=== PATIENT | male | born 1970 | race Caucasian/White ===

== ENCOUNTER 2016-11-01 12:26 | Emergency (ER) | payer MEDICAID, OTHER ==
[2016-11-01 13:21] VITALS: BP 125/78
--- NOTE | 2016-11-01 13:40 | UC ---
Back Pain HPI - HPI Summary HPI Summary: Acute low back pain starting 10 days ago, feeling frequent spasms and numbness down backs of legs. Has noted urinary incontinence when standing for the last 3 days. Might be constipated, unsure when his last BM was. - History of Current Complaint Stated Complaint: LOWER BACK PAIN Time Seen by Provider: 11/01/16 13:11 Hx Obtained From: Patient Onset/Duration: Gradual Onset, Lasting Days Timing: Constant Severity Initially: Severe Severity Currently: Severe Character: Aching, Spasmodic Aggravating: Movement, Walking Associated Signs And Symptoms: Positive: Weakness, Numbness, Bladder Incontinence. Negative: Redness, Bruising, Fever, Tingling - Risk Factors Cauda Equina Risk Factors: Perineal Anesthesia, Bladder Dysfunction - Allergies/Home Medications Allergies/Adverse Reactions: Allergies Allergy/AdvReac Type Severity Reaction Status Date / Time No Known Allergies Allergy Verified 01/31/13 19:07 PMH/Surg Hx/FS Hx/Imm Hx Endocrine History Of: Denies: Diabetes, Thyroid Disease Cardiovascular History Of: Denies: Cardiac Disorders, Hypertension Respiratory History Of: Denies: COPD, Asthma GI/ History Of: Denies: Ulcer - Surgical History Surgical History: Yes Surgery Procedure, Year, and Place: 17 yrs old had femur shattered and surgery - Family History Known Family History: Positive: Hypertension - Social History Lives: Alone Alcohol Use: None Substance Use Type: Marijuana Substance Use Comment - Amount & Last Used: 2x week, today Smoking Status (MU): Former Smoker Type: Cigarettes Length of Time of Smoking/Using Tobacco: 15 When Did the Patient Quit Smoking/Using Tobacco: 2004 - Immunization History Most Recent Influenza Vaccination: denies Most Recent Pneumonia Vaccination: denies Review of Systems Constitutional: Negative Skin: Negative Eyes: Negative ENT: Negative Respiratory: Negative Cardiovascular: Negative Gastrointestinal: Negative Genitourinary: Other - incontinence Motor: Negative Neurovascular: Negative Musculoskeletal: Arthralgia, Myalgia Neurological: Weakness, Paresthesia Psychological: Negative All Other Systems Reviewed And Are Negative: Yes Physical Exam Triage Information Reviewed: Yes Appearance: Well-Nourished, Pain Distress - with movement Vital Signs: Initial Vital Signs Temp 98.1 F 11/01/16 13:12 Pulse 98 11/01/16 13:12 Resp 20 11/01/16 13:12 BP 125/78 11/01/16 13:12 Pulse Ox 98 11/01/16 13:12 Vital Signs Reviewed: Yes Eye Exam: Normal Eyes: Positive: Conjunctiva Clear ENT Exam: Normal ENT: Positive: Normal ENT inspection, Hearing grossly normal, Pharynx normal, TMs normal Dental Exam: Normal Neck exam: Normal Neck: Positive: Supple, Nontender, No Lymphadenopathy Respiratory Exam: Normal Respiratory: Positive: Chest non-tender, Lungs clear, Normal breath sounds, No respiratory distress, No accessory muscle use Cardiovascular Exam: Normal Cardiovascular: Positive: RRR, No Murmur Abdomen Description: Negative: CVA Tenderness (R), CVA Tenderness (L) Musculoskeletal: Positive: ROM Intact, No Edema, Strength Limited @ - leg extension at knees Neurological Exam: Other - gd rectal tone, DTRs 2+ knees, ankles, full sharp sensation in saddle area, diminished sensation in posterior thighs Psychological Exam: Normal Psychological: Positive: Normal Response To Family Skin Exam: Normal Back Pain Course/Dx - Course Course Of Treatment: Discussed ambulance transport to ED with pt, he does not consent because he has his dog in his vehicle and doesn't know anyone in the area. States he will go to the hospital once he takes care of his dog. - Differential Dx/Diagnosis Provider Diagnoses: low back pain. possible cauda equina syndrome - Physician Notifications Discussed Patient Care With: Destinee Melchor Time Discussed With Above Provider: 14:40 Instructed by Provider To: MD Will See In ED Discharge - Discharge Plan Condition: Fair Disposition: TRANS HIGHER LVL OF CARE FAC Prescriptions: oxyCODONE/Acetamin 5/325 MG* [Percocet 5/325 TAB*] 1 tab PO Q4H PRN #20 tab MDD 6 PRN Reason: Pain Patient Education Materials: Back Pain (ED) Referrals: No Primary Care Phys,NOPCP [Primary Care Provider] - Ondina Shrestha MD [Medical Doctor] - 1 Day Additional Instructions: Please report to the ED after you take care of your dog but for follow up, you can see orthopedics.
--- NOTE | 2016-11-01 14:54 | UC ---
I, Jayy Henderson, scribed for Daniel Wells MD on 11/01/16 at 1406 . Progress - Progress Note Progress Note: Patient is a 46 y/o male who presents to the with incontinence and pain since one week ago. The incontinence has been for three days in the am when he first gets up and he has severe pain. he says he has the sensation to urinate but cannot hold it due to pain. He denies numbness in scrotum and anus, but reports that if he has been too active or standing for extended periods of time , his posterior thighs "go to sleep. He denies any previous back surgery. Appears stiff. He states he has been in this kind of pain for a week. Incontinency for 3 days. He has the sensation to urinate, but unable to control his urine due to pain. Unable to make it to the bathroom. PE: Obvious discomfort. Pin prick intact of the anus and rectal tone intact. neuro exam deferred to [employer]. But reported to be normal in sensation and strength zoila. A&P: He does not describe overflow incontinence. He has intact rectal tone and pin prick around saddle area. Incontinency for 3 days in the morning simply because he stands and feels sharp pain and cannot make it to the bathroom. We recommended a transfer to the hospital on 3 separate occasions and he adamantly refused. We described the possibility of cord compression and in the best case scenario improved pain control in the ER. He states that he will have to go home first, make arrangements for his dog that is currently in his car, and will then report the ER. In the meantime, we will make a referral to the orthopedics and send pain medication to his pharmacy. He also refused Toradol. And again because he was so adamant about driving home we were unable to give him Morphine. The documentation as recorded by the [email or web address] [place] accurately reflects the service I personally performed and the decisions made by me, Daniel Wells MD.
== END 2016-11-01 14:33 | disposition short-term general hospital (02) ==
LOC: UCEAST 12:26
DX: M54.5 Low back pain (principal); R32 Unspecified urinary incontinence; R53.1 Weakness; R20.2 Paresthesia of skin; F12.90 Cannabis use, unspecified, uncomplicated; Z87.891 Personal history of nicotine dependence
CPT/HCPCS: 99202; G0463

== ENCOUNTER 2016-11-05 15:45 | Emergency (ER) | payer SELFPAY ==
[2016-11-05] MEDS ORDERED: Cyclobenzaprine TAB* 10 MG PO ONE (16:42)
--- NOTE | 2016-11-05 17:20 | ED ---
Back Pain - HPI Summary HPI Summary: 46M presents with back pain for two weeks. He denies any injury at the time. He says that he has had urinary retention. He states that is was due to the pain he was unable to get to the bathroom and when urinate on himself. He denies any loss of stool. He states that he has numbness of his pelvis. He was seen in urgent care a week ago and was advised to go to ED to r/o cauda equina but he refused. States has been taking percocet without relief. He describes it as intense muscle spasms when his pain is at the worst. He states the pain is in the middle of his back. - History of Current Complaint Chief Complaint: EDBackInjuryHoney Stated Complaint: BACK PAIN Time Seen by Provider: 11/05/16 17:00 Pain Intensity: 9 - Allergies/Home Medications Allergies/Adverse Reactions: Allergies Allergy/AdvReac Type Severity Reaction Status Date / Time No Known Allergies Allergy Verified 01/31/13 19:07 PMH/Surg Hx/FS Hx/Imm Hx Endocrine/Hematology History: Denies: Hx Diabetes, Hx Thyroid Disease Cardiovascular History: Denies: Hx Hypertension Respiratory History: Denies: Hx Asthma, Hx Chronic Obstructive Pulmonary Disease (COPD) GI History: Denies: Hx Ulcer - Surgical History Surgery Procedure, Year, and Place: 17 yrs old had femur shattered and surgery Infectious Disease History: No Infectious Disease History: Denies: Hx Clostridium Difficile, Hx Hepatitis, Hx Human Immunodeficiency Virus (HIV), Hx of Known/Suspected MRSA, Hx Shingles, Hx Tuberculosis, Hx Known/ Suspected VRE, Hx Known/Suspected VRSA, History Other Infectious Disease, Traveled Outside the [place] in Last 30 Days - Family History Known Family History: Positive: Hypertension - Social History Alcohol Use: None Substance Use Type: Reports: Marijuana Substance Use Comment - Amount & Last Used: 2x week, today Smoking Status (MU): Former Smoker Type: Cigarettes Length of Time of Smoking/Using Tobacco: 15 Review of Systems Negative: Fever Negative: Chest Pain Negative: Shortness Of Breath Positive: Myalgia - back pain All Other Systems Reviewed And Are Negative: Yes Physical Exam Triage Information Reviewed: Yes Vital Signs On Initial Exam: Initial Vitals Temp Pulse Resp BP Pulse Ox 97.2 F 85 16 150/96 96 11/05/16 15:58 11/05/16 15:58 11/05/16 15:58 11/05/16 15:58 11/05/16 15:58 Vital Signs Reviewed: Yes Appearance: Positive: Well-Appearing Skin: Positive: Warm, Dry Head/Face: Positive: Normal Head/Face Inspection Eyes: Positive: Normal, Conjunctiva Clear Respiratory/Lung Sounds: Positive: Clear to Auscultation, Breath Sounds Present Cardiovascular: Positive: Normal, RRR Musculoskeletal: Positive: Limited @ - back due to pain, Other - pos SLR, tenderness midline back Neurological: Positive: Reflexes Intact - patella, ankle Diagnostics - Vital Signs Vital Signs Temp Pulse Resp BP Pulse Ox 11/05/16 15:58 97.2 F 85 16 150/96 96 - Laboratory Lab Statement: Any lab studies that have been ordered have been reviewed, and results considered in the medical decision making process. - Additional Comments Diagnostic Additional Comments: MRI spine IMPRESSION: MILD TO MODERATE DEGENERATIVE DISC DISEASE AND FACET OSTEOARTHRITIS DESCRIBED. Back Pain Course/Dx - Course Course Of Treatment: 46M presents with lower back pain for a two week. no injury. was seen at urgent care a week ago and have signs of cauda equina in that was having urinary retention and numbness of pelvis so was advised to go to ED but patient declined. patient has been taking percocet without relief. Patient says that the pain was causing the retention as sets an alarm now to wake up early to take pain medication and now he is no longer leaking urine. He still though admits to some numbness in his pelvis. he describes the pain as spasms that cause intense pain. talked with dr moreno who advised to do MRI. patient is driving home so unable to give much medication. MRI shows degenerative changes and no cauda equina. discussed results with patient. will prescribe muscle relaxers and prednisone. advised that best to use ibuprofen for pain but patient says that needs something more. discussed risk and benefits and told patient that if uses medication needs to move more as is spending most time in bed, discussed may need PT in the future. gave contact info for neurosurgery but explained that MRI does not show anything surgical. patient understands and agrees with plan - Diagnoses Differential Diagnosis/HQI/PQRI: Positive: Cauda Equina Syndrome, Herniated Disc , Strain, Sprain Provider Diagnoses: Back pain Discharge - Discharge Plan Condition: Good Disposition: HOME Prescriptions: HYDROcodone/ACETAMIN 5-325 MG* [[place] 5-325 TAB*] 1 tab PO Q6H PRN #12 tab MDD 4 PRN Reason: Pain Methocarbamol TAB* [Robaxin TAB*] 750 mg PO TID PRN #9 tab PRN Reason: Pain Methylprednisolone [Medrol Dosepak 4 MG*] 4 mg PO .SEE AMY INSTRUCTION #1 packet Patient Education Materials: Back Pain (ED) Referrals: [facility] [place] [facility]FERR[facility] [Outside] Benoit Sanchez MD [Medical Doctor] - Additional Instructions: Follow directions on package for Medrol pack Take muscle relaxers three times a day for 3 days Use ibuprofen or Tylenol for pain every 6 hours, use narcotic for break through pain every 6 hours Inc fiber intake ice/heat area, move as much as possible Follow up with primary, may need to do physical therapy in future Follow up with neurosurgery if no improvement Return to ED if unable to ambulate or develop any new or worsening symptoms
[2016-11-05] MEDS ORDERED: predniSONE TAB* 20 MG PO ONE (17:22)
[2016-11-05] MEDS ORDERED: Ketorolac INJ* 60 MG/2 ML VIAL IM ONE (17:23)
[2016-11-05] MEDS ORDERED: Diazepam TAB(*) 5 MG PO ONE (18:42)
--- NOTE | 2016-11-05 21:04 | RAD ---
INDICATION: Back pain, urinary retention evaluate for stenosis. COMPARISON: Comparison is made with a prior dorsal lumbar spine from November 23, 2006. TECHNIQUE: Axial and sagittal T1 and T2 and coronal T2-weighted images of the lumbar spine were obtained. FINDINGS: The vertebra are in normal alignment. No significant focal bony abnormality or fracture is seen. At the L2-L3 level there is a mild broad-based disc bulge which causes mild spinal canal narrowing. Neural foramen appear patent on both sides. At the L3-L4 level the intervertebral disc appears to be within normal limits. There are mild hypertrophic changes within the facet joints. No significant spinal canal narrowing is present. At the L4-L5 level there is a [id number] broad-based disc bulge and moderate hypertrophic changes within the facet joints which causes moderate spinal canal narrowing. There is mild bilateral neural foraminal narrowing. At the L5-S1 level there is a small right posterolateral disc protrusion which abuts the right S1 nerve root in the lateral recess without displacement. No significant spinal canal narrowing is present. There are moderate hypertrophic changes within the facet joints. Neural foramen appear patent on both sides. IMPRESSION: MILD TO MODERATE DEGENERATIVE DISC DISEASE AND FACET OSTEOARTHRITIS DESCRIBED.
[2016-11-05] MEDS ORDERED: HYDROcodone/ACETAMIN 5-325 MG* 1 TAB PO ONE (21:12)
[2016-11-05] MEDS ORDERED: Methocarbamol TAB* 500 MG PO ONE (21:12)
[2016-11-05 21:40] VITALS: BP 140/83
== END 2016-11-05 21:40 | disposition home or self-care (01) ==
LOC: ED 15:45
DX: M54.5 Low back pain (principal); Z87.891 Personal history of nicotine dependence; M51.36 Other intervertebral disc degeneration, lumbar region
CPT/HCPCS: 72148; 96372; 99282; A9270-GY; J1885; J7512